=== PATIENT | male | born 1980 | race Caucasian/White ===

== ENCOUNTER 2021-03-27 07:09 | Inpatient (IN) ==
--- NOTE | 2021-03-27 07:18 | Emergency Department Note ---
Impression & Plan Lumbar back pain, Sciatica, Herniation of intervertebral disc of lumbar region ED Provider Note Provider: Lui Martin MD DATE OF SERVICE: 03/24/2021 CHIEF COMPLAINT: Back pain HISTORY OF PRESENT ILLNESS: Patient is a 40-year-old gentleman history of degenerative back disease follows with Dr. Chavez with the plan for back surgery in several weeks presenting here today reporting back pain issues for more than 3 months. Has been told by Dr. Chavez if things worsen to come to the ER this presents today. Patient reports some radiation of the pain down the left leg to the left calf. Denies any new numbness or loss of bladder or bowel function. Describes it as a 8 out of 10 pain. Patient reports that the pain is worsened some and has kept him up all night. Patient states his home medications including tramadol not did not help with the pain. Reports he has some chronic numbness in the left lateral leg and knee area but this is unchanged. No trauma reported newly. Was scheduled for back surgery next week but this is currently on hold given the current state of the pandemic & hospital census. Patient reports MRI this past weekend. REVIEW OF SYSTEMS: A total of 10 review of systems was obtained and negative except as stated above in the HPI. PAST MEDICAL HISTORY: As noted above MEDICATIONS: Reviewed home medications with the patient SOCIAL HISTORY: Former smoker, works in maintenance PHYSICAL EXAM: GENERAL: alert and oriented seated in no acute distress on stretcher fatigued appearing Head: normocephalic and atraumatic EYES: No injection, discharge or icterus. NECK: Trachea midline. LUNGS: Airway patent. No retractions. Breath sounds clear HEART: Regular rate and rhythm. No chest wall tenderness ABDOMEN: Soft and non-tender, without guarding or rebound. No hepatosplenomegaly or masses BACK: No midline tenderness/step-off no SI joint tenderness. No bilateral flank tenderness. SKIN: Acyanotic, warm, dry, without rashes EXTREMITIES: Without swelling, tenderness or deformity NEUROLOGICAL: No focal deficits. No aphasia. No facial droop or slurred speech. Normal strength and tone in the extremities. Sensation to gross touch normal. Ambulatory. PDMP was checked without noted issue. Patient's laboratory studies and imaging reviewed. Differential includes Musculoskeletal, disc herniation, fracture, metastatic disease, cord compression, discitis, sciatica, cauda equina, infection, aortic disease, renal colic, gastrointestinal, as well as other pathologies. IMPRESSION/MEDICAL DECISION MAKING: Patient with history of degenerative back pain over the past year has followed with Dr. Chavez. MRI this past [facility] at [facility]. Patient denies any new trauma. No new neurological changes or bladder or bowel issues. Patient does report both with a stable left knee numbness. He states the pain is worsened some and he was unable to sleep last night thus presents here. Has been using home medications including tramadol. Has received steroids stopped in the past. Given a dose of steroids and morphine here to help with pain. Benign abdomen otherwise. Doubt this represents acute cauda equina or infection. Doubt acute intra-abdominal pathology. Basic labs completed. Case management assisted obtaining outside records of the lumbar MRI which has not been read yet by the radiologist. Blood work here is reassuring. Patient's pain transiently abated with the morphine the patient still without significant comfort. Reached out to Dr. Chavez and was later was able to get an MRI read for the patient with worsening spinal stenosis/lumbar disc herniation L4-L5. Dr. Chavez will admit for further pain control and possible intervention given his complaints and poorly controlled symptoms of pain. DIAGNOSIS: Back pain, herniated lumbar disc, sciatica DISPOSITION: Dr. Chavez will admit Patient was agreeable with this plan Past Med/Surg History Medical History Degenerative disc disease Elevated blood pressure, situational per pt, elevated but not requiring medication per PCP Elevated cholesterol not on medication Right bundle branch block Surgical History History of myringotomy X 5, current set History of tonsillectomy and adenoidectomy Hx of vasectomy [place] teeth removed Family History Father Family history of diabetes mellitus Grandmother (Maternal) Family history of diabetes mellitus Grandfather (Maternal) Family history of diabetes mellitus Other No family history of adverse response to anesthesia Social History Smoking Status: Former smoker Smoking End Date: 01/23/21; Second Hand Exposure: No; Hx Alcohol Use: Yes Alcohol type: beer and hard liquor Hx Substance Use: No Preferred Language: German Communication Ability: Effective Dramatic Reader Required: No Beliefs That Will Affect Care: None Current Living Situation: Spouse Other Information That Helps Us Care for You: No Feels Safe at Home: Yes Safety Concerns: Feels Safe At This Time Assistive Devices: None Allergies Allergies Allergy/AdvReac Type Severity Reaction Status Date / Time No Known Allergies Allergy Verified 03/19/21 09:31 Home Meds Home Medications Medication Instructions Recorded Confirmed cyclobenzaprine 10 mg tablet 10 mg PO TID PRN 03/19/21 03/27/21 gabapentin 600 mg tablet 600 mg PO TID 03/19/21 03/27/21 naproxen sodium 220 mg capsule 220 mg PO BID PRN 03/19/21 03/27/21 (Aleve) tramadol 50 mg tablet 50 mg PO TID PRN 03/19/21 03/27/21 celecoxib 200 mg capsule 200 mg PO DAILY 03/27/21 03/27/21 Results & Data (ED) Vital Signs Vital Signs - 24 hr 03/27/21 07:13 03/27/21 07:58 03/27/21 08:57 Temperature 36.6 C Temperature Source Skin Pulse Rate 70 69 Pulse Rate [Right Finger] 64 Pulse Strength [Right Finger] Normal Respiratory Rate 18 17 16 Respiratory Effort / Characteristics Non-Labored Spontaneous Respiratory Depth Normal Respiratory Pattern Regular Blood Pressure 164/99 H Blood Pressure [Right Arm] 162/89 H Blood Pressure Mean 120 Blood Pressure Mean [Right Arm] 113 Blood Pressure Position [Right Arm] Sitting Pulse Oximetry 97 97 96 Oxygen Delivery Method Room Air Room Air Room Air Sepsis Recent Fever Within 48 Hours No Sepsis New/Unexplained Change in Mental Status No Sepsis Action Taken by Nursing No Action Required Laboratory Data Result diagrams: 03/27/21 08:05 03/27/21 08:05 Lab Results 03/27/21 03/27/21 03/27/21 Range/Units 08:05 08:05 10:00 WBC 8.64 (4.8-10.8) K/uL RBC 4.98 (4.7-6.1) M/uL Hgb 15.2 (14.0-18.0) g/dL Hct 45.7 (42-52) % MCV 91.8 (80-100) fL MCH 30.5 (25-34) pg MCHC 33.3 (32-36) g/dL RDW Std Deviation 42.8 (36.4-46.3) fL RDW Coeff of Ying 12.8 (11.5-14.5) % Plt Count 264 (130-400) K/uL MPV 10.8 H (7.4-10.4) fL Immature Gran % (Auto) 0.1 % Neut % (Auto) 59.3 % Lymph % (Auto) 24.9 % Brooks % (Auto) 10.2 % Eos % (Auto) 5.3 % Baso % (Auto) 0.2 % Neut # (Auto) 5.12 (1.4-6.5) K/uL Lymph # (Auto) 2.15 (1.2-3.4) K/uL Brooks # (Auto) 0.88 H (0.11-0.59) K/uL Eos # (Auto) 0.46 (0-0.5) K/uL Baso # (Auto) 0.02 (0-0.2) K/uL Immature Gran # (Auto) 0.01 (0.00-0.02) K/uL Sodium 139 (136-145) mmol/L Potassium 4.3 (3.5-5.1) mmol/L Chloride 107 (98-107) mmol/L Carbon Dioxide 26 (21-32) mmol/L Anion Gap 6.0 (3-11) BUN 15 (7-18) mg/dl Creatinine 0.86 (0.6-1.4) mg/dl Est Cr Clr Drug Dosing 162.7 ml/min Est GFR ( Amer) 125.7 ml/min Est GFR (Non-Af Amer) 108.5 ml/min BUN/Creatinine Ratio 17.6 (10-20) Glucose 114 H (70-99) mg/dl Calcium 9.4 (8.5-10.1) mg/dl Total Bilirubin 0.5 (0.2-1) mg/dl AST 33 (15-37) U/L ALT 77 (12-78) Alkaline Phosphatase 66 (45-117) U/L Total Protein 7.6 (6.4-8.2) gm/dl Albumin 3.7 (3.4-5.0) gm/dl Globulin 3.9 (2.5-4.0) gm/dl Albumin/Globulin Ratio 0.9 (0.9-2) Lipase 142 (73-393) U/L SARS-CoV-2, RNA, NAAT NEGATIVE (NEGATIVE) Administered Medications Gabapentin (Gabapentin 600 Mg Tab) 600 mg PO TID ZENAIDA Stop: 04/26/21 13:59 Last Admin: 03/27/21 13:08 Dose: 600 mg Documented by: [id number] Lactated Ringer's (Lr) 1,000 mls @ 75 mls/hr IV .[id number] ZENAIDA Stop: 04/26/21 11:33 Last Admin: 03/27/21 11:43 Dose: 75 mls/hr Documented by: [id number] Oxycodone HCl (Oxycodone Hcl Ir 5 Mg Tab (Immediate Release)) 5 - 10 mg PO Q4H PRN PRN Reason: mod to severe pain Stop: 04/10/21 11:33 Last Admin: 03/27/21 12:49 Dose: 5 mg Documented by: [id number] Discontinued Medications Dexamethasone Sodium Phosphate (DexamethasonePf 10 Mg/Ml Vial) 10 mg IV NOW ONE Stop: 03/27/21 07:37 Last Admin: 03/27/21 07:56 Dose: 10 mg Documented by: [id number] Morphine Sulfate (Morphine Sulfate 4 Mg/Ml 1 Ml Carp\Vial) 4 mg IV NOW STA Stop: 03/27/21 07:37 Last Admin: 03/27/21 07:57 Dose: 4 mg Documented by: [id number] Discharge Plan Visit Data Chief Complaint: Back Injury/Pain Stated Complaint: SEVERE BACK PAIN ED Provider: Lui Martin Discharge Problem: Lumbar back pain, Sciatica, Herniation of intervertebral disc of lumbar region Patient Disposition: Admitted As Inpatient Discharge Instructions Interventions: ED Discharge Assessment Last Done: 03/27/21 10:48 Discharge Problem: Sciatica Qualifiers: Laterality: left Qualified Code(s): M54.32 - Sciatica, left side
[2021-03-27] MEDS ORDERED: MoRPHine SULFATE 4 MG/ML 1 ML CARP\\VIAL IV STA (07:36)
[2021-03-27] MEDS ORDERED: dexAMETHasone**PF** 10 MG/ML VIAL IV ONE (07:36)
[2021-03-27 08:14] LABS: Basophils # (auto) 0.02 K/uL (0-0.2); Basophils % (auto) 0.2 %; Eosinophils # (auto) 0.46 K/uL (0-0.5); Eosinophils % (auto) 5.3 %; Hematocrit (blood only) 45.7 % (42-52); Hemoglobin 15.2 g/dL (14.0-18.0); Immature Granulocytes # (auto) 0.01 K/uL (0.00-0.02); Immature Granulocytes % (auto) 0.1 %; Lymphocytes # (auto) 2.15 K/uL (1.2-3.4); Lymphocytes % (auto) 24.9 %; Mean Corpuscular Hemoglobin 30.5 pg (25-34); Mean Corpuscular Hgb Conc 33.3 g/dL (32-36); Mean Corpuscular Volume 91.8 fL (80-100); Mean Platelet Volume 10.8 fL (7.4-10.4); Monocytes # (auto) 0.88 K/uL (0.11-0.59); Monocytes % (auto) 10.2 %; Neutrophils # (auto) 5.12 K/uL (1.4-6.5); Neutrophils % (auto) 59.3 %; Platelet Count 264 K/uL (130-400); RDW Coefficient of Variation 12.8 % (11.5-14.5); RDW Standard Deviation 42.8 fL (36.4-46.3); Red Blood Count 4.98 M/uL (4.7-6.1); White Blood Count 8.64 K/uL (4.8-10.8)
[2021-03-27 08:36] LABS: Albumin Level 3.7 gm/dl (3.4-5.0); BUN Creatinine Ratio 17.6 (10-20); Calcium 9.4 mg/dl (8.5-10.1); Creatinine Clr Calc Pharmacy 162.7 ml/min; Est GFR (African American) 125.7 ml/min; Est GFR (Non-African American) 108.5 ml/min; Potassium 4.3 mmol/L (3.5-5.1)
[2021-03-27 08:39] LABS: Albumin Globulin Ratio 0.9 (0.9-2); Bilirubin,Total 0.5 mg/dl (0.2-1); Globulin 3.9 gm/dl (2.5-4.0); Total Protein 7.6 gm/dl (6.4-8.2)
[2021-03-27] MEDS ORDERED: hydrOXYzine HCl 25 MG TAB PO PRN (11:34)
[2021-03-27] MEDS ORDERED: METOCLOPRAMIDE HCL INJ 5 MG/ML 2 ML VIAL IV PRN (11:34)
[2021-03-27] MEDS ORDERED: MAGNESIUM HYDROXIDE SUSP 30 ML UDC PO PRN (11:34)
[2021-03-27] MEDS ORDERED: diphenhydrAMINE Capsule 25 MG CAP PO PRN (11:34)
[2021-03-27] MEDS ORDERED: ACETAMINOPHEN 500 MG TAB PO PRN (11:34)
[2021-03-27] MEDS ORDERED: HYDROmorphone INJ 0.5 MG/0.5 ML SYR IV PRN (11:34)
[2021-03-27] MEDS ORDERED: ONDANSETRON 4 MG OD TAB PO PRN (11:34)
[2021-03-27] MEDS ORDERED: ALUMINUM/MAGNESIUM SUSP 30 ML UDC PO PRN (11:34)
[2021-03-27] MEDS ORDERED: ONDANSETRON INJ 2 MG/ML 2 ML VIAL IV PRN (11:34)
[2021-03-27] MEDS ORDERED: PROMETHAZINE HCL 12.5 MG in SODIUM CHLORIDE 0.9% 50 ML IV PRN (11:34)
[2021-03-27] MEDS ORDERED: NALOXONE HCL 0.4 MG/1 ML VIAL/CARP IV PRN (11:34)
[2021-03-27] MEDS ORDERED: ACETAMINOPHEN 1,000 MG/100 ML VIAL IV PRN (11:34)
[2021-03-27] MEDS ORDERED: HYDROmorphone INJ 1 MG/ML SYRINGE IV PRN (11:34)
[2021-03-27] MEDS ORDERED: LORazepam 0.5 MG/1 ML VIAL IV PRN (11:34)
[2021-03-27] MEDS ORDERED: LORazepam 0.5 MG TAB PO PRN (11:34)
[2021-03-27] MEDS: LACTATED RINGER'S 1,000 ML IV SCH ×2 (11:43→23:27)
[2021-03-27] MEDS: oxyCODONE HCL IR 5 MG TAB (IMMEDIATE RELEASE) PO PRN ×2 (12:49→17:48)
[2021-03-27] MEDS ORDERED: ceFAZolin 3000MG/72.5 ML BAG IV ONE (13:00)
[2021-03-27] MEDS: GABAPENTIN 600 MG TAB PO SCH ×2 (13:08→20:27)
--- NOTE | 2021-03-27 13:25 | Anesthesiology Consultation ---
Date of Service March 27, 2021 Assessment & Plan (1) Encounter for pre-operative examination: Chart Review Chart Review: Acceptable Risk for Surgery and Patient seen in Pre Admission Testing Consults Requested none History Surgery Operation Date: 03/28/21 07:00 Proposed Procedures p L4-L5 Decompression and Fusion - Scooter Chavez DO Height/Weight Height: 6 ft 1 in Weight: 141.067 kg Allergies Allergy/AdvReac Type Severity Reaction Status Date / Time No Known Allergies Allergy Verified 03/19/21 09:31 Medications Home Medications Medication Instructions Recorded Confirmed Last Taken cyclobenzaprine 10 mg tablet 10 mg PO TID PRN 03/19/21 03/27/21 03/27/21 gabapentin 600 mg tablet 600 mg PO TID 03/19/21 03/27/21 03/27/21 naproxen sodium 220 mg capsule 220 mg PO BID PRN 03/19/21 03/27/21 Unknown (Aleve) tramadol 50 mg tablet 50 mg PO TID PRN 03/19/21 03/27/21 03/27/21 celecoxib 200 mg capsule 200 mg PO DAILY 03/27/21 03/27/21 03/27/21 Active Medications Generic Name Dose Route Start Last Admin Trade Name Freq PRN Reason Stop Dose Admin Gabapentin 600 mg 03/27/21 14:00 03/27/21 13:08 Gabapentin 600 Mg Tab PO 04/26/21 13:59 600 mg TID ZENAIDA Administration Lactated Ringer's 1,000 mls @ 75 mls/hr 03/27/21 11:34 03/27/21 11:43 Lr IV 04/26/21 11:33 75 mls/hr .[id number] ZENAIDA Administration Oxycodone HCl 5 - 10 mg 03/27/21 11:34 03/27/21 12:49 Oxycodone Hcl Ir 5 Mg Tab (Immediate Release) PO 04/10/21 11:33 5 mg Q4H PRN Administration mod to severe pain Past Medical History Medical History Degenerative disc disease Elevated blood pressure, situational per pt, elevated but not requiring medication per PCP Elevated cholesterol not on medication Right bundle branch block Past Family History Family History Father Family history of diabetes mellitus Grandmother (Maternal) Family history of diabetes mellitus Grandfather (Maternal) Family history of diabetes mellitus Other No family history of adverse response to anesthesia Past Surgical History Surgical History History of myringotomy X 5, current set History of tonsillectomy and adenoidectomy Hx of vasectomy [place] teeth removed Social History Smoking Status: Former smoker tobacco type: cigarettes Smoking End Date: 01/23/21 Hx Alcohol Use: Yes Alcohol type: beer and hard liquor alcohol intake frequency: holidays/special occasions only Hx Substance Use: No substance use type: does not use Physical Exam Vital Signs Last Vital Signs Temp 36.8 C 03/27/21 11:23 Pulse 62 03/27/21 11:23 Resp 18 03/27/21 11:23 BP 148/84 H 03/27/21 11:23 Pulse Ox 97 03/27/21 11:23 Testing Laboratory Results 03/27/21 08:05 03/27/21 08:05 Electrocardiogram Date: 03/22/21 DICTATED BY:Smooth Marvin MD Test Reason : Blood Pressure : / mmHG Vent. Rate : 058 BPM Atrial Rate : 058 BPM P-R Int : 144 ms QRS Dur : 168 ms QT Int : 462 ms P-R-T Axes : 018 046 018 degrees QTc Int : 453 ms Sinus bradycardia Right bundle branch block Abnormal ECG No previous ECGs available Confirmed by Smooth Marvin ([id number]) on 03/23/2021 12:08:46 PM Referred By: Scooter Chavez Confirmed By:Smooth Marvin Signed By: Chest X-Ray Date: 03/22/21 XR chest Pre-admission PA/Lat CLINICAL HISTORY: pat. Evaluate cardiopulmonary status COMPARISON STUDY: No previous studies for comparison. TECHNIQUE: 2 views of the chest FINDINGS: Frontal and lateral radiographs of the chest demonstrate the cardiomediastinal silhouette to be within normal limits. The lungs are clear of alveolar opacities. There is no evidence for effusion bilaterally. There is no evidence for vascular congestion. There is no acute osseous pathology. IMPRESSION: No acute cardiopulmonary disease. ACT 112: Negative or not required by law. Electronically signed by: Shaji Molina M.D. 03/22/2021 11:55 AM Dictated:03/22/21 1154 Transcribed: 03/22/21 1154
--- NOTE | 2021-03-27 14:43 | Internal Medicine Consult Note ---
Date of Consultation March 27, 2021 Assessment & Plan (1) Lumbar back pain: Lumbar Spinal stenosis with radiculopathy Plan for L4-L5 decompression fusion surgery by Dr. Chavez. Pain control NPO after midnight Monitor for post OP anemia Bowel regimen to prevent constipation Activity & DVT Px as per Primary team On gentle IV fluids PT/OT when appropriate Seasonal Allergies on Flonase as needed DVT Px: SCDs for now Code Status Full Code Thank you for this consultation. We will follow the patient with you during their hospital stay. You can reach a member of the [facility] Hospitalist Team with any questions. History of Present Illness Reason for Consultation: Medical Management Requesting Physician: Attending Physician: Scooter Chavez, DO History of Present Illness Patient is a 40-year-old male with history of chronic low back pain, allergies and no other significant medical history presents with history of worsening lower back pain inability to perform his daily activities. Patient states trying different therapies including injections, physical therapy, steroids, chiropractor evaluation but with no relief of his symptoms. Patient states lower back pain is sharp to dull, 5/10, radiates to left lower extremity and associated with some numbness. Back pain worsens with movement and is controlled with pain medication. Denies any leg weakness, chest pain, shortness breath, dizziness, nausea, abdominal pain, fever, chills, loss of bowel or bladder control. Patient is planned for L4-L5 decompression fusion surgery by Dr. Chavez. Allergies Allergy/AdvReac Type Severity Reaction Status Date / Time No Known Allergies Allergy Verified 03/19/21 09:31 Home Medications Medication Instructions Recorded Confirmed Type cyclobenzaprine 10 mg tablet 10 mg PO TID PRN 03/19/21 03/27/21 History gabapentin 600 mg tablet 600 mg PO TID 03/19/21 03/27/21 History naproxen sodium 220 mg capsule 220 mg PO BID PRN 03/19/21 03/27/21 History (Aleve) tramadol 50 mg tablet 50 mg PO TID PRN 03/19/21 03/27/21 History celecoxib 200 mg capsule 200 mg PO DAILY 03/27/21 03/27/21 History Patient History Medical History Degenerative disc disease Elevated blood pressure, situational per pt, elevated but not requiring medication per PCP Elevated cholesterol not on medication Right bundle branch block Surgical History History of myringotomy X 5, current set History of tonsillectomy and adenoidectomy Hx of vasectomy [place] teeth removed Family History Father Family history of diabetes mellitus Grandmother (Maternal) Family history of diabetes mellitus Grandfather (Maternal) Family history of diabetes mellitus Other No family history of adverse response to anesthesia Social History Smoking Status: Former smoker Smoking End Date: 01/23/21; Second Hand Exposure: No; Hx Alcohol Use: Yes Alcohol type: beer and hard liquor Hx Substance Use: No Preferred Language: Croatian Communication Ability: Effective Primary Care Sales Representative Required: No Beliefs That Will Affect Care: None Current Living Situation: Spouse Other Information That Helps Us Care for You: No Feels Safe at Home: Yes Safety Concerns: Feels Safe At This Time Assistive Devices: None Review of Systems Review of Systems: All systems reviewed & are unremarkable except as noted in Subjective Physical Exam Physical Exam: Physical Exam: Vitals signs as noted above General Appearance:Morbidly Obese, no apparent distress Head: normocephalic, Atraumatic Eyes: normal inspection, EOMI Neck: supple, Trachea midline Respiratory/Chest: Normal breath sounds, CTA Cardiovascular: S1, S2, No murmur Abdomen/GI:Soft, Non tender, Bowel sounds present Back: Lumbar tenderness Extremities/Musculoskeletal:normal inspection, no edema Neurologic/Psych:AAOX3, grossly no focal neurological deficits Skin: normal color, warm Results & Data ([facility]) Vital Signs (Past 12 Hours) Vital Signs Temp Pulse Pulse Resp BP BP Pulse Ox 03/27/21 11:23 36.8 C 62 18 148/84 H 97 03/27/21 08:57 64 16 162/89 H 96 03/27/21 07:58 69 17 97 03/27/21 07:13 36.6 C 70 18 164/99 H 97 Laboratory Results Short CBC 03/27/21 Range/Units 08:05 WBC 8.64 (4.8-10.8) K/uL Hgb 15.2 (14.0-18.0) g/dL Hct 45.7 (42-52) % Plt Count 264 (130-400) K/uL BMP 03/27/21 08:05 Sodium 139 Potassium 4.3 Chloride 107 Carbon Dioxide 26 BUN 15 Creatinine 0.86 Glucose 114 H Calcium 9.4 Liver Function 03/27/21 Range/Units 08:05 Total Bilirubin 0.5 (0.2-1) mg/dl AST 33 (15-37) U/L ALT 77 (12-78) Alkaline Phosphatase 66 (45-117) U/L Albumin 3.7 (3.4-5.0) gm/dl Medications Administered Home Medications Medication Instructions Recorded Confirmed cyclobenzaprine 10 mg tablet 10 mg PO TID PRN 03/19/21 03/27/21 gabapentin 600 mg tablet 600 mg PO TID 03/19/21 03/27/21 naproxen sodium 220 mg capsule 220 mg PO BID PRN 03/19/21 03/27/21 (Aleve) tramadol 50 mg tablet 50 mg PO TID PRN 03/19/21 03/27/21 celecoxib 200 mg capsule 200 mg PO DAILY 03/27/21 03/27/21
--- NOTE | 2021-03-27 15:51 | History & Physical Report ---
Date of Service March 27, 2021 Assessment & Plan (1) Herniation of intervertebral disc of lumbar region: Plan: Assessment lumbar spinal stenosis with disc herniation L4-L5. Plan at this time the patient has an updated MRI performed at [facility] dated 03/23/2020 one of the lumbar spine. It demonstrates worsening of his disc herniation at L4-L5 on the left with significant encroachment of the traversing nerve roots. There is marked facet hypertrophy and congenital spinal stenosis. In light of his presentation neuro deficit we are recommending urgent lumbar decompression fusion L4-5. He will require aggressive bilateral medial facetectomies to adequately and safely decompress the canal creating iatrogenic instability and thus requiring fusion. Risk benefits pros cons alternatives were outlined in detail. Admission and Anticipated Discharge Date Admission Date: March 27, 2021 History of Present Illness Chief Complaint: Severe back and left leg pain with weakness Primary Care Provider: Peterson Gaxiola DO This is a 40-year-old male well-known to us that is been managed for back and leg symptoms for several months. He notes a marked decline in status over the past several weeks. With pain severe down the left buttock posterior lateral thigh into the lower leg. This is markedly exacerbated with standing and walking. Right lower extremities asymptomatic. He is unable to provide any position that provides relief. Oral medications provided no help. Is undergone extensive course of physical therapy and injections without any relief. Allergies Allergy/AdvReac Type Severity Reaction Status Date / Time No Known Allergies Allergy Verified 03/19/21 09:31 Home Medications Medication Instructions Recorded Confirmed Type cyclobenzaprine 10 mg tablet 10 mg PO TID PRN 03/19/21 03/27/21 History gabapentin 600 mg tablet 600 mg PO TID 03/19/21 03/27/21 History naproxen sodium 220 mg capsule 220 mg PO BID PRN 03/19/21 03/27/21 History (Aleve) tramadol 50 mg tablet 50 mg PO TID PRN 03/19/21 03/27/21 History celecoxib 200 mg capsule 200 mg PO DAILY 03/27/21 03/27/21 History Past Med/Surg History Medical History Degenerative disc disease Elevated blood pressure, situational per pt, elevated but not requiring medication per PCP Elevated cholesterol not on medication Right bundle branch block Surgical History History of myringotomy X 5, current set History of tonsillectomy and adenoidectomy Hx of vasectomy [place] teeth removed Family History Father Family history of diabetes mellitus Grandmother (Maternal) Family history of diabetes mellitus Grandfather (Maternal) Family history of diabetes mellitus Other No family history of adverse response to anesthesia Social History Smoking Status: Former smoker Smoking End Date: 01/23/21; Second Hand Exposure: No; Hx Alcohol Use: Yes Alcohol type: beer and hard liquor Hx Substance Use: No Preferred Language: Bengali Communication Ability: Effective Appointment Scheduler Required: No Beliefs That Will Affect Care: None Current Living Situation: Spouse Other Information That Helps Us Care for You: No Feels Safe at Home: Yes Safety Concerns: Feels Safe At This Time Assistive Devices: None Physical Exam Physical Exam: On exam he is able to stand. He can stand on his toes but cannot heel walk on the left leg secondary to foot drop. Bench exam reveals 4- /5 left dorsiflexion compared to 5 5 on the right. His quadriceps are 5 5 bilaterally. He has severe tension signs with straight leg raising on the left negative on the right. Deep tendon reflexes diminished. Results & Data ([facility]) Vital Signs (Past 12 Hours) Vital Signs Temp Pulse Pulse Resp BP BP Pulse Ox 03/27/21 11:23 36.8 C 62 18 148/84 H 97 03/27/21 08:57 64 16 162/89 H 96 03/27/21 07:58 69 17 97 03/27/21 07:13 36.6 C 70 18 164/99 H 97 Code Status & VTE Plan VTE Prophylaxis Plan VTE Prophylaxis will be ordered: Yes
[2021-03-28] MEDS ORDERED: ceFAZolin 2000MG 2,000 MG/15 ML SYR IV SCH (06:00)
[2021-03-28] MEDS ORDERED: ceFAZolin 3000MG/72.5 ML BAG IV ONE (06:00)
[2021-03-28 06:26] LABS: Hematocrit (blood only) 41.1 % (42-52); Hemoglobin 13.8 g/dL (14.0-18.0); Mean Corpuscular Hemoglobin 30.8 pg (25-34); Mean Corpuscular Hgb Conc 33.6 g/dL (32-36); Mean Corpuscular Volume 91.7 fL (80-100); Mean Platelet Volume 11.1 fL (7.4-10.4); Platelet Count 251 K/uL (130-400); RDW Coefficient of Variation 12.7 % (11.5-14.5); RDW Standard Deviation 42.7 fL (36.4-46.3); Red Blood Count 4.48 M/uL (4.7-6.1); White Blood Count 13.61 K/uL (4.8-10.8)
[2021-03-28] MEDS ORDERED: EPINEPHrine INJ 1 MG/ML AMP ONE (06:53)
[2021-03-28] MEDS ORDERED: BUPIVACAINE 0.5 % 5 MG/1 ML MPF 30ML VIAL ONE (06:53)
[2021-03-28 07:20] LABS: BUN Creatinine Ratio 15.8 (10-20); Calcium 8.9 mg/dl (8.5-10.1); Creatinine Clr Calc Pharmacy 161.1 ml/min; Est GFR (African American) 123.4 ml/min; Est GFR (Non-African American) 106.5 ml/min; Potassium 3.7 mmol/L (3.5-5.1)
--- NOTE | 2021-03-28 07:42 | History & Physical Bridge Note ---
Date of Service March 28, 2021 History & Physical Bridge Note I have examined the patient, reviewed the History & Physical and in the interval since the performance of the History & Physical I have noted the following changes of clinical significance: no changes noted Lumbar decompression fusion L4-L5
[2021-03-28] MEDS ORDERED: NEOSTIGMINE METHYLSULFATE 1 MG/ML 10ML VIAL ONE (07:51)
[2021-03-28] MEDS ORDERED: DEXAMETHASONE SOD INJ 4 MG/ML VIAL ONE (07:51)
[2021-03-28] MEDS ORDERED: GLYCOPYRROLATE 0.2 MG/ML VIAL ONE (07:51)
[2021-03-28] MEDS ORDERED: LIDOCAINE 2% 2 ML VIAL/AMP(20MG/ML) INFIL ONE (07:51)
[2021-03-28] MEDS ORDERED: PROPOFOL IV EMULSION 10 MG/ML 20 ML VIAL IV ONE (07:51)
[2021-03-28] MEDS ORDERED: fentaNYL citrate 100 MCG/2 ML VIAL ONE (07:51)
[2021-03-28] MEDS ORDERED: MIDAZOLAM HCL 1 MG/ML 2ML VIAL ONE (07:51)
[2021-03-28] MEDS ORDERED: ONDANSETRON INJ 2 MG/ML 2 ML VIAL ONE (07:51)
[2021-03-28] MEDS ORDERED: HYDROmorphone INJ 2 MG/ML SYR/VIAL ONE (07:52)
[2021-03-28] MEDS ORDERED: ONDANSETRON INJ 2 MG/ML 2 ML VIAL IV PRN ×2 (07:57→12:03)
[2021-03-28] MEDS ORDERED: ePHEDrine sulfate 50 MG/ML AMP IV PRN (07:57)
[2021-03-28] MEDS ORDERED: ATROPINE SULFATE 0.1 MG/ML 10ML SYR IV PRN (07:57)
[2021-03-28] MEDS ORDERED: ROCURONIUM BROMIDE 10 MG/ML 5 ML VIAL IV ONE ×9 (09:26→09:28)
[2021-03-28] MEDS ORDERED: SUCCINYLCHOLINE CHLORIDE 20 MG/ML 10 ML VIAL IV ONE (09:29)
[2021-03-28] MEDS ORDERED: FLOSEAL HEMOSTATIC MATRIX 10ML TOP ONE (09:30)
[2021-03-28] MEDS ORDERED: SUGAMMADEX SODIUM 200 MG/2 ML VIAL IV ONE (10:00)
--- NOTE | 2021-03-28 10:11 | Operative Report ---
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 #2 posterior spinal fusion L4-L5. #3 placement posterior instrumentation L4-L5. #4 interbody fusion L4-L5. #5 placement of titanium 12 x 26 mm cage at L4-L5. #6 placement locally harvested morselized autograft in the posterior gutters. #7 placement of I factor combined with V toss in the interbody space and posterior lateral gutters. Surgeon Scooter Chavez, DO Electrical Cad Technician Zeinab Gómez Estimated Blood Loss 100 Findings See Below The patient is 6 foot 1 inches tall weighing over 141 kg with a BMI of 41. The patient's body habitus did continue to significant technical difficulty requiring her deepest retractors longus instruments in order to perform his procedure. This at least 50% increased operative time. Specimens None Indications This is a 40-year-old male who presents with marked decline in status with worsening neurologic deficit affecting left lower extremity evidence of a massive disc herniation and is here for urgent decompression fusion. Description of Procedure Patient met with identified informed consent obtained. Patient was then taken to the operative suite underwent intubation placed in the prone position the Tyson table top Haresh frame. All bony prominences well-padded eyes inspected to ensure no external pressure placed upon them. This point the lumbar spine was prepped and draped in normal sterile fashion. Sharp dissection with the assistance of Bovie cautery was performed down to and exposing the lamina and transverse processes of L4-L5. From caudal cephalad fashion complete laminectomy L4 partial laminectomy of L3 was performed including bilateral medial facetectomy and foraminotomies addressing severe spinal stenosis. Massive free fragment of disc material was also noted on the left under the traversing nerve root. This was removed in its entirety to assist in decompr ession. Pedicle screws then placed in L4-L5 bilaterally with assistance of fluoroscopy and appropriate sized gabe placed. By way the transforaminal portion left pleat discectomy was performed endplates curetted to subcortically bone and a 12 x 26 mm 15 degree titanium cage filled with I factor tapped in position. The rods were then compressed locked in final position bilaterally. The transverse processes of L4 and L5 burred to subcortical bleeding bone. Locally harvested morselized autograft combined with I factor and Vitoss was then placed in the posterior gutters. 15 round JOVANNA drain inserted. Incision was then closed with 1 Vicryl to fascia 2-0 Vicryl subcutaneously and 4 Monocryl for final skin closure. Steri-Strip sterile dressings placed. Patient will continue PACU stable condition. Please note spinal cord monitoring was utilized at the procedure no changes noted. Lastly Zeinab Gómez was present at the entire procedure and while the patient positioning complex portions of the surgery and vascular closure. I attest to the content of the Intraoperative Record and any orders documented therein. Any exceptions are noted below.
[2021-03-28] MEDS: fentaNYL citrate 100 MCG/2 ML VIAL IV PRN ×2 (10:33→10:42)
[2021-03-28] MEDS: HYDROmorphone INJ 2 MG/ML SYR/VIAL IV PRN ×2 (10:52→11:11)
--- NOTE | 2021-03-28 11:04 | Fluoroscopy Report ---
FL lumbar spine 2-3V HISTORY: 40 years-old Male L4-L5 DECOMP/FUSION COMPARISON: Lumbar spine MRI 03/23/2021 TECHNIQUE: 2 spot fluoroscopic images of the lumbar spine were obtained utilizing 19.6 seconds fluoro scopy time FINDINGS: Laminectomy with discectomy, posterior interbody gabe and screw fusion at L4-L5. The hardware appears intact. No unexpected opaque foreign body identified on these images. IMPRESSION: Fluoroscopic assistance as above. ACT 112: Negative or not required by law. The above report was generated using voice recognition software. It may contain grammatical, syntax o r spelling errors. Electronically signed by: Graeme Corcoran M.D. 03/28/2021 11:03 AM
[2021-03-28] MEDS ORDERED: DO NOT ADMINISTER FLU VACCINE PRN (12:03)
[2021-03-28] MEDS ORDERED: DO NOT ADMINISTER PNEUMOCOCCAL VACCINE PRN (12:03)
[2021-03-28] MEDS ORDERED: ACETAMINOPHEN 500 MG TAB PO PRN (12:03)
[2021-03-28] MEDS ORDERED: traMADol HCL 50 MG TABLET PO PRN (12:03)
[2021-03-28] MEDS ORDERED: HYDROmorphone INJ 1 MG/ML SYRINGE IV PRN (12:03)
[2021-03-28] MEDS ORDERED: hydrOXYzine HCl 25 MG TAB PO PRN (12:03)
[2021-03-28] MEDS ORDERED: bisacodyL 10 MG SUPP PR PRN (12:03)
[2021-03-28] MEDS ORDERED: oxyCODONE HCL IR 5 MG TAB (IMMEDIATE RELEASE) PO PRN (12:03)
[2021-03-28] MEDS ORDERED: ONDANSETRON 4 MG OD TAB PO PRN (12:03)
[2021-03-28] MEDS ORDERED: diphenhydrAMINE Capsule 25 MG CAP PO PRN (12:03)
[2021-03-28] MEDS ORDERED: NALOXONE HCL 0.4 MG/1 ML VIAL/CARP IV PRN (12:03)
[2021-03-28] MEDS ORDERED: METOCLOPRAMIDE HCL INJ 5 MG/ML 2 ML VIAL IV PRN (12:03)
[2021-03-28] MEDS ORDERED: MAGNESIUM HYDROXIDE SUSP 30 ML UDC PO PRN (12:03)
[2021-03-28] MEDS ORDERED: FAMOTIDINE 20 MG TAB PO PRN (12:03)
[2021-03-28] MEDS ORDERED: LORazepam 0.5 MG/1 ML VIAL IV PRN (12:03)
[2021-03-28] MEDS ORDERED: LACTATED RINGER'S 1,000 ML IV SCH (12:03)
[2021-03-28] MEDS ORDERED: LORazepam 0.5 MG TAB PO PRN (12:03)
[2021-03-28] MEDS ORDERED: HYDROmorphone INJ 0.5 MG/0.5 ML SYR IV PRN (12:03)
[2021-03-28] MEDS ORDERED: PROMETHAZINE HCL 12.5 MG in SODIUM CHLORIDE 0.9% 50 ML IV PRN (12:03)
[2021-03-28] MEDS ORDERED: ALUMINUM/MAGNESIUM SUSP 30 ML UDC PO PRN (12:03)
[2021-03-28] MEDS ORDERED: ACETAMINOPHEN 1,000 MG/100 ML VIAL IV PRN (12:03)
[2021-03-28] MEDS ORDERED: SOD PHOSPHATE/SOD BIPHOSPHATE ENEMA 132 ML BTL PR PRN (12:03)
[2021-03-28] MEDS: GABAPENTIN 600 MG TAB PO SCH ×3 (12:07→20:16)
[2021-03-28] MEDS: LACTATED RINGER'S 1,000 ML IV SCH (13:03)
[2021-03-28] MEDS: KETOROLAC 30 MG/ML VIAL IV SCH ×2 (13:05→18:15)
--- NOTE | 2021-03-28 15:32 | Anesthesiology Progress Note ---
Date of Service March 28, 2021 Anesthesia Post Procedure Vital Signs Vital Signs: Temp Pulse Pulse Resp BP Pulse Ox 03/28/21 15:00 36.6 C 84 18 145/83 H 96 03/28/21 14:00 82 18 130/65 95 03/28/21 13:00 82 18 133/71 93 03/28/21 12:29 75 18 106/61 92 03/28/21 12:00 36.7 C 96 H 18 139/87 93 03/28/21 11:40 81 20 131/71 97 03/28/21 11:30 36.8 C 78 18 121/67 97 03/28/21 11:20 82 18 132/78 97 03/28/21 11:10 84 20 120/72 97 03/28/21 11:00 83 18 146/68 H 93 03/28/21 10:50 90 20 123/66 98 03/28/21 10:40 92 H 20 137/81 98 03/28/21 10:30 91 H 16 163/88 H 98 03/28/21 10:24 36.3 C L 90 14 146/95 H 99 03/28/21 07:23 36.7 C 91 H 18 149/81 H 97 03/27/21 23:03 37.0 C 95 H 18 153/73 H 90 03/27/21 16:07 36.6 C 77 16 167/81 H 97 Pain Intensity Lower Back: Pain Intensity: 3 Transfer of Care Handoff Completed per policy Notes Mental Status: alert / awake / arousable and participated in evaluation Patient Amnestic to Procedure: Yes Nausea / Vomiting: adequately controlled Pain: adequately controlled Airway Patency, RR, SpO2: stable & adequate BP & HR: stable & adequate Hydration State: stable & adequate Anesthetic Complications: no major complications apparent and Pt Satisfied with anesthetic care
--- NOTE | 2021-03-28 17:09 | Hospitalist Progress Note ---
Date of Service March 28, 2021 Assessment & Plan (1) Lumbar back pain: Plan: Lumbar Spinal stenosis with radiculopathy POD #0 s/p L4-L5 decompression fusion surgery by Dr. Chavez Monitor H&H, continue incentive spirometry, PT/OT when appropriate Discussed positioning with nursing post op since patient has been in chair, who will check with ortho Seasonal Allergies Flonase as needed DVT Px: per primary service Code Status Full Code Thank you for this consultation. We will follow the patient with you during their hospital stay. You can reach a member of the [facility] Hospitalist Team with any questions. Admission and Anticipated Discharge Date Admission Date: March 27, 2021 Supervising Physician Co-Signing Physician Notes Patient seen and examined by me, care coordinated with Vasquez Martinez PA-C, please refer to note above for further detail. Patient is a 40-year-old male, who underwent lumbar spinal surgery earlier today. Currently sitting up in chair, in no acute distress. Patient's at the bedside, updated. He is overall feeling well, has some back pain after surgery. Denies any fevers, chills, chest pain, shortness of breath, abdominal pain, nausea or vomiting. We will discuss further recommendations per orthopedic surgery, as this patient's been sitting in a chair for some time this afternoon. Monitor hemodynamic status, H&H. Noel Greer MD Subjective Patient seen and examined in 383-2. Sitting in bedside chair following surgery. Feeling well with the surgical site discomfort but denies carey pain. No numbness or paresthesias in bilateral lower extremities. No fever, chills, headache, lightheadedness, chest pain, shortness of breath, palpitations, nausea, vomiting, abdominal pain, dysuria, diarrhea or constipation. Review of Systems Review of Systems: At least ten systems reviewed and negative except as noted in the HPI. Physical Exam Physical Exam: Gen: WD/WN, NAD, sitting in bedside chair, A&Ox3 HEENT: Normocephalic, atraumatic, conjunctivae moist, sclerae anicteric, mucous membranes moist Lung: Clear to Auscultation bilaterally, no wheezes/rales/rhonchi Heart: Regular rate, regular rhythm, no murmurs, rubs, or gallops Abdomen: Soft, NT, ND +BS x 4 Extremities: Spinal dressing c/d/i. JVOANNA drain visualized. No edema Skin: Warm, no rash Results & Data Results & Data ([facility]) Vital Signs (Past 12 Hours) Vital Signs Temp Pulse Pulse Resp BP Pulse Ox 03/28/21 15:00 36.6 C 84 18 145/83 H 96 03/28/21 14:00 82 18 130/65 95 03/28/21 13:00 82 18 133/71 93 03/28/21 12:29 75 18 106/61 92 03/28/21 12:00 36.7 C 96 H 18 139/87 93 03/28/21 11:40 81 20 131/71 97 03/28/21 11:30 36.8 C 78 18 121/67 97 03/28/21 11:20 82 18 132/78 97 03/28/21 11:10 84 20 120/72 97 03/28/21 11:00 83 18 146/68 H 93 03/28/21 10:50 90 20 123/66 98 03/28/21 10:40 92 H 20 137/81 98 03/28/21 10:30 91 H 16 163/88 H 98 03/28/21 10:24 36.3 C L 90 14 146/95 H 99 03/28/21 07:23 36.7 C 91 H 18 149/81 H 97 Laboratory Results Short CBC 03/28/21 Range/Units 05:58 WBC 13.61 H (4.8-10.8) K/uL Hgb 13.8 L (14.0-18.0) g/dL Hct 41.1 L (42-52) % Plt Count 251 (130-400) K/uL [facility] 03/28/21 05:58 Sodium 140 Potassium 3.7 Chloride 109 H Carbon Dioxide 25 BUN 14 Creatinine 0.90 Glucose 175 H Calcium 8.9 Diagnostic Findings Short CBC 03/28/21 Range/Units 05:58 WBC 13.61 H (4.8-10.8) K/uL Hgb 13.8 L (14.0-18.0) g/dL Hct 41.1 L (42-52) % Plt Count 251 (130-400) K/uL [facility] 03/28/21 05:58 Sodium 140 Potassium 3.7 Chloride 109 H Carbon Dioxide 25 BUN 14 Creatinine 0.90 Glucose 175 H Calcium 8.9
[2021-03-28] MEDS: oxyCODONE HCL IR 5 MG TAB (IMMEDIATE RELEASE) PO PRN ×2 (17:29→22:29)
[2021-03-28] MEDS: ceFAZolin 2000MG 2,000 MG/15 ML SYR IV SCH (17:33)
[2021-03-28] MEDS: traMADol HCL 50 MG TABLET PO PRN (20:08)
[2021-03-28] MEDS: DOCUSATE SODIUM/SENNA 50/8.6MG TAB PO SCH (20:15)
[2021-03-29] MEDS: KETOROLAC 30 MG/ML VIAL IV SCH ×2 (01:18→06:09)
[2021-03-29] MEDS: ceFAZolin 2000MG 2,000 MG/15 ML SYR IV SCH (01:20)
[2021-03-29] MEDS: oxyCODONE HCL IR 5 MG TAB (IMMEDIATE RELEASE) PO PRN ×5 (02:23→21:30)
[2021-03-29] MEDS: POLYETHYLENE (MIRALAX) 17 GM PACK PO SCH ×3 (06:09→17:36)
[2021-03-29 06:11] LABS: Basophils # (auto) 0.02 K/uL (0-0.2); Basophils % (auto) 0.1 %; Eosinophils # (auto) 0.11 K/uL (0-0.5); Eosinophils % (auto) 0.8 %; Hematocrit (blood only) 38.8 % (42-52); Hemoglobin 12.5 g/dL (14.0-18.0); Immature Granulocytes # (auto) 0.03 K/uL (0.00-0.02); Immature Granulocytes % (auto) 0.2 %; Lymphocytes # (auto) 2.76 K/uL (1.2-3.4); Lymphocytes % (auto) 20.1 %; Mean Corpuscular Hemoglobin 30.3 pg (25-34); Mean Corpuscular Hgb Conc 32.2 g/dL (32-36); Mean Corpuscular Volume 93.9 fL (80-100); Mean Platelet Volume 10.9 fL (7.4-10.4); Monocytes # (auto) 1.06 K/uL (0.11-0.59); Monocytes % (auto) 7.7 %; Neutrophils # (auto) 9.78 K/uL (1.4-6.5); Neutrophils % (auto) 71.1 %; Platelet Count 224 K/uL (130-400); RDW Coefficient of Variation 12.9 % (11.5-14.5); RDW Standard Deviation 44.4 fL (36.4-46.3); Red Blood Count 4.13 M/uL (4.7-6.1); White Blood Count 13.76 K/uL (4.8-10.8)
[2021-03-29 06:42] LABS: BUN Creatinine Ratio 18.8 (10-20); Calcium 8.6 mg/dl (8.5-10.1); Creatinine Clr Calc Pharmacy 161.1 ml/min; Est GFR (African American) 123.4 ml/min; Est GFR (Non-African American) 106.5 ml/min; Potassium 3.8 mmol/L (3.5-5.1)
[2021-03-29] MEDS: GABAPENTIN 600 MG TAB PO SCH ×3 (09:11→21:31)
[2021-03-29] MEDS: dexAMETHasone 6 MG in SYRINGE 0 ML IV SCH (09:11)
[2021-03-29] MEDS ORDERED: bisacodyL 10 MG SUPP PR PRN (10:14)
--- NOTE | 2021-03-29 13:41 | Orthopedic Progress Note ---
Date of Service March 29, 2021 Assessment & Plan (1) Herniation of intervertebral disc of lumbar region: Plan: At this time we will continue physical therapy monitor his JOVANNA output anticipate discharge home this weekend. Admission and Anticipated Discharge Date Admission Date: March 27, 2021 Subjective Back pain controlled leg pain markedly improved Physical Exam Physical Exam: Patient is in the chair at the bedside. He is very comfortable. He exhibits excellent strength testing. Results & Data ([facility]) Vital Signs (Past 12 Hours) Vital Signs Temp Pulse Resp BP Pulse Ox 03/29/21 07:00 36.6 C 61 18 130/70 94 03/29/21 03:43 36.6 C 69 18 124/73 95
[2021-03-29] MEDS: traMADol HCL 50 MG TABLET PO PRN ×2 (14:20→19:58)
--- NOTE | 2021-03-29 16:36 | Hospitalist Progress Note ---
Date of Service March 29, 2021 Assessment & Plan (1) Lumbar back pain: Plan: Lumbar Spinal stenosis with radiculopathy POD #1 s/p L4-L5 decompression fusion surgery by Dr. Chavez Monitor H&H (hgb 12.5 today, 13.8 yesterday), continue incentive spirometry, PT/OT when appropriate Continue bowel regimen Episode of ? rectal bleeding Noted small amount of BRB in toilet bowl earlier after passing gas Unsure if drain leaking or possible GI bleed ? H/o hemorrhoids Discussed with RN, hat placed on toilet in case of repeat occurrence Monitor H&H, consider GI consult if bleeding continues. Avoiding NSAIDs for now Seasonal Allergies Flonase as needed DVT Px: per primary service Code Status Full Code Thank you for this consultation. We will follow the patient with you during their hospital stay. You can reach a member of the [facility] Hospitalist Team with any questions. Admission and Anticipated Discharge Date Admission Date: March 27, 2021 Supervising Physician Co-Signing Physician Notes Patient seen and examined by me, care coordinated with Vasquez Martinez PA-C, please refer to note above for further detail. Patient is a 40-year-old male, who underwent lumbar spinal surgery yesterday. Currently sitting up in chair, in no acute distress. He is overall feeling well, denies any fevers, chills, chest pain, shortness of breath, abdominal pain, nausea or vomiting. Reports noting some blood after having BM/ passing gas however pt is not sure of source. Discussed w/ RN, hat placed in toilet, monitor for recurrence/ identify the source. Monitor hemodynamic status, H&H. Noel Greer MD Subjective Seen and examined in 383-2. Feeling well today. Minimal surgical site discomfort. Able to ambulate with PT. Did notice small amount of bright red blood in toilet earlier when passing gas. Denies any pain. Does have history of hemorrhoids and admits he was straining earlier when this occurred. Does not think JOVANNA drain was leaking but cannot be sure. Denies any fever, chills, headache, chest pain, shortness of breath, nausea, vomiting, abdominal pain, dysuria or diarrhea. Review of Systems Review of Systems: At least ten systems reviewed and negative except as noted in the HPI. Physical Exam Physical Exam: Gen: WD/WN, NAD, sitting in bedside chair, A&Ox3 HEENT: Normocephalic, atraumatic, conjunctivae moist, sclerae anicteric, mucous membranes moist Lung: Clear to Auscultation bilaterally, no wheezes/rales/rhonchi Heart: Regular rate, regular rhythm, no murmurs, rubs, or gallops Abdomen: Soft, NT, ND +BS x 4 Extremities: Spinal dressing c/d/i. JOVANNA drain visualized. No edema Skin: Warm, no rash Results & Data Results & Data ([facility]) Vital Signs (Past 12 Hours) Vital Signs Temp Pulse Resp BP Pulse Ox 03/29/21 15:00 36.8 C 73 16 141/61 H 96 03/29/21 07:00 36.6 C 61 18 130/70 94 Laboratory Results Short CBC 03/29/21 Range/Units 05:44 WBC 13.76 H (4.8-10.8) K/uL Hgb 12.5 L (14.0-18.0) g/dL Hct 38.8 L (42-52) % Plt Count 224 (130-400) K/uL BMP 03/29/21 05:44 Sodium 140 Potassium 3.8 Chloride 108 H Carbon Dioxide 29 BUN 17 Creatinine 0.90 Glucose 105 H Calcium 8.6 Diagnostic Findings Lumbar Spine X-Ray 03/28/21 00:00 [place] lumbar spine 2-3V HISTORY: 40 years-old Male L4-L5 DECOMP/FUSION COMPARISON: Lumbar spine MRI 03/23/2021 TECHNIQUE: 2 spot fluoroscopic images of the lumbar spine were obtained utilizing 19.6 seconds fluoroscopy time FINDINGS: Laminectomy with discectomy, posterior interbody gabe and screw fusion at L4-L5. The hardware appears intact. No unexpected opaque foreign body identified on these images. IMPRESSION: Fluoroscopic assistance as above. ACT 112: Negative or not required by law. The above report was generated using voice recognition software. It may contain grammatical, syntax or spelling errors. Electronically signed by: Graeme Corcoran M.D. 03/28/2021 11:03 AM
[2021-03-29] MEDS: DOCUSATE SODIUM/SENNA 50/8.6MG TAB PO SCH (21:30)
[2021-03-30] MEDS: POLYETHYLENE (MIRALAX) 17 GM PACK PO SCH ×2 (00:44→05:58)
[2021-03-30] MEDS: oxyCODONE HCL IR 5 MG TAB (IMMEDIATE RELEASE) PO PRN ×2 (05:58→10:41)
[2021-03-30 06:33] LABS: Hematocrit (blood only) 38.9 % (42-52); Hemoglobin 12.8 g/dL (14.0-18.0); Mean Corpuscular Hemoglobin 30.3 pg (25-34); Mean Corpuscular Hgb Conc 32.9 g/dL (32-36); Mean Corpuscular Volume 92.2 fL (80-100); Mean Platelet Volume 10.7 fL (7.4-10.4); Platelet Count 241 K/uL (130-400); RDW Coefficient of Variation 12.8 % (11.5-14.5); RDW Standard Deviation 43.5 fL (36.4-46.3); Red Blood Count 4.22 M/uL (4.7-6.1); White Blood Count 12.11 K/uL (4.8-10.8)
[2021-03-30 07:04] LABS: BUN Creatinine Ratio 18.4 (10-20); Calcium 8.9 mg/dl (8.5-10.1); Creatinine Clr Calc Pharmacy 164.7 ml/min; Est GFR (African American) 124.5 ml/min; Est GFR (Non-African American) 107.5 ml/min
[2021-03-30] MEDS: traMADol HCL 50 MG TABLET PO PRN ×2 (07:21→13:26)
[2021-03-30] MEDS: GABAPENTIN 600 MG TAB PO SCH ×2 (07:23→13:25)
--- NOTE | 2021-03-30 08:39 | Discharge Summary ---
Date of Service March 30, 2021 Admission HPI Per Admitting Provider This is a 40-year-old male well-known to us that is been managed for back and leg symptoms for several months. He notes a marked decline in status over the past several weeks. With pain severe down the left buttock posterior lateral thigh into the lower leg. This is markedly exacerbated with standing and walking. Right lower extremities asymptomatic. He is unable to provide any position that provides relief. Oral medications provided no help. Is undergone extensive course of physical therapy and injections without any relief. Principal Diagnosis Lumbar disc condition with radiculopathy Discharge Data Allergies Allergy/AdvReac Type Severity Reaction Status Date / Time No Known Allergies Allergy Verified 03/19/21 09:31 Consultations 03/27/21 10:00 ED Decision to Admit Stat 03/27/21 11:34 Consult Internal Medicine Routine Procedures Performed Operation Date: 03/28/21 07:00 Actual Procedures p L4-L5 Decompression and Fusion, Placement of Intervertebral Cage and With Spinal Cord Monitoring(Bilateral) - Scooter Chavez DO Ordered Studies 03/28/21 [place] lumbar spine 2-3V Routine Hospital Course (1) Herniation of intervertebral disc of lumbar region: Patient was admitted with severe back and leg pain with weakness. He underwent surgery the following day tolerates well stable orthopedic floor. Postop day one is up and ambulating marked improvement of his symptoms. Progressed to postop day #2. Pain well controlled. JOVANNA drain decreasing probably. Excellent strength testing. Socially discharged home. Discharge orders instructions from the chart for further review. Total Time Total Time Spent Total Time Spent (In Minutes): 20 minutes Discharge Plan Discharge Items Patient Disposition: Home - Self-Care Reason For Visit: BACK AND LEG PAIN Discharge Diagnosis: Lumbar disc condition with radiculopathy Activity: As commented below Non-emergency contact: Primary Care Provider Call non-emergency contact if: you have any medication questions Follow-up/Referrals: Peterson Gaxiola DO [Primary Care Provider] - Diet: Regular Addtl Attending Provider Instructions: ACTIVITY RECOMMENDATIONS: SELF CARE INSTRUCTIONS AFTER THORACIC/LUMBAR FUSIONS 1. You may walk to your tolerance. It is good exercise for your legs and back. Expect some back and intermittent leg aches and pains. 2. You may perform "counter-top" level activities (make a sandwich, j luis with a project, etc.). 3. No bending or lifting of more than 10 pounds or back twisting of any nature (roll like a log when turning in bed). 4. You may ride in a car for 20-30 minutes at a time. No driving until after your first visit with your doctor. 5. Frequent changes of position and restricting sitting to 30 minutes at a time will help limit the amount of back spasms and stiffness you may experience. 6. You may discontinue the use of ambulatory aids (cane, crutches, etc.) once your strength and confidence allow. 7. You may cutter brake lining the shower and let water strike your incision when you arrive home at least once daily. Do not take a tub bath, sit in a hot tub or go into a swimming pool until after your first recheck in the office. SPECIAL CARE INSTRUCTIONS: VERY IMPORTANT TO READ AND REVIEW A. Your surgical incision has been closed with a cosmetic suture under the skin that will dissolve in about 6 weeks. In 14 days, you can use a pair of clean scissors and cut the suture that is left outside of the skin at the ends of your incision. 1. The small skin tapes can be removed 7 days after surgery if they have not fallen off by that point. 2. You may keep the wound open to air as much as possible to promote healing after post-op day number 5 unless told otherwise by your doctor. 3. If you think the wound looks like it is becoming infected (redness or worsening drainage) and/or you are experiencing fever, chill or worsening back pain and muscle spasms, contact the office so that we may evaluate you as soon as possible. B. Complications are uncommon, but please contact us if you have any signs or symptoms of: 1. wound infection (fever higher than 102.5 degrees F, redness, separation of wound, drainage, or increasing pain from the incision) 2. blood clots in legs (pain, swelling, redness and warmth in legs) 3. urinary tract infection (fever higher than 102.5 degrees F, burning upon urination or increased frequency of urination) 4. nerve problems (inability to walk on your toes or heels, numbness, loss of bowel or bladder control) 5. any other symptoms that concern you C. Please call the office at if you have any concerns or questions about your operation or recovery. D. No smoking! Smoking drastically decreases the chance of a solid fusion. E. Do not take any anti-inflammatory medications (Indocin, Advil, Motrin, Aspirin, Naprosyn, etc.) as these may inhibit the chance of a solid fusion. Tylenol is okay to take for pain. MANAGING PAIN AFTER SPINAL SURGERY 1. Narcotic medication is intended for short-term use and will be provided for surgical pain. Surgical pain usually lasts for a period of 4-6 weeks. Narcotic medication includes Percocet, Vicodin, Darvocet, Tylenol #3 or Lortab. 2. Longer-term pain is more appropriately treated with non-narcotic medication such as Tylenol ES. 3. Muscle spasm is not appropriately treated with narcotics. Muscle relaxers such as Soma, Flexeril or Skelaxin can be used along with Tylenol ES. 4. Remember that we all live with some "aches and pains". This is not unusual or uncommon after an injury or as we get older. a. Back pain is expected and may include muscle spasms for 4 to 6 weeks after surgery. The pain should gradually improve. If the pain worsens for no apparent reason, please contact the office. b. Intermittent leg pain may also be experienced and should not be concerned about unless it worsens for no apparent reason. If so, please contact the office. 5. We will provide appropriate medication within the normal guidelines of their prescribed use. We will also be very cautious and aware of potential abuse and extended duration of patients' medication needs. a. Pain medications are for your comfort and to assist with sleep and rest so that the tissue can heal. They are not provided in order to return to normal activity and should not be used through the day. To do so or worsening pain at night can result from ongoing tissue damage and development of tolerance to the prescribed medicine. 6. Please allow 2-3 days to process refills. Prescriptions will not be mailed but must be picked up at the office. FOLLOW UP VISIT: Keep your scheduled follow-up appointment. Any questions, please call the office at . Pending Studies at Discharge: No Stand-Alone Forms: [employer], Smoking Cessation Medications and DC Order Prescriptions: New oxycodone 5 mg tablet 5 mg PO Q6H PRN (Reason: pain, severe) Qty: 30 RF: 0 tramadol 50 mg tablet 50 mg PO Q6H PRN (Reason: pain, moderate) Qty: 30 RF: 0 Continued cyclobenzaprine 10 mg Tablet 10 mg PO TID PRN (Reason: Pain) RF: 0 gabapentin 600 mg Tablet 600 mg PO TID RF: 0 tramadol 50 mg Tablet 50 mg PO TID PRN (Reason: Pain) RF: 0 celecoxib 200 mg capsule 200 mg PO DAILY RF: 0 Discontinued naproxen sodium [Aleve] 220 mg Capsule 220 mg PO BID PRN (Reason: Pain) RF: 0 Discharge Orders: Discharge Order (Routine); Ordered 03/30/21 Ordered By: Scooter Chavez Admission Data Admit Date/Time: 03/27/21 10:18 Attending Provider: Scooter Chavez Admit Provider: Scooter Chavez Primary Care Provider: Peterson Gaxiola Other Providers: Wally Greer ; Scooter Chavez ; Lyubov Quintero
[2021-03-30] MEDS: dexAMETHasone 6 MG in SYRINGE 0 ML IV SCH (09:49)
--- NOTE | 2021-03-30 10:51 | Hospitalist Progress Note ---
Date of Service March 30, 2021 Assessment & Plan (1) Lumbar back pain: Plan: Lumbar Spinal stenosis with radiculopathy POD #2 s/p L4-L5 decompression fusion surgery by Dr. Chavez Monitor H&H Hgb stable from yesterday continue incentive spirometry, PT/OT when appropriate Continue bowel regimen Episode of ? rectal bleeding Noted small amount of BRB in toilet bowl yesterday Unsure if drain leaking or possible GI bleed ? H/o hemorrhoids Discussed with RN, hat placed on toilet in case of repeat occurrence Today patient reported having a bowel movement, and no blood noted, also H&H stable from yesterday Seasonal Allergies Flonase as needed DVT Px: per primary service Code Status Full Code Thank you for this consultation. We will follow the patient with you during their hospital stay. You can reach a member of the [facility] Hospitalist Team with any questions. Admission and Anticipated Discharge Date Admission Date: March 27, 2021 Subjective Patient seen in follow-up of lumbar surgery Yesterday patient reported questionable bleeding while using toilet. Today he says that he had a bowel movement, and there was no blood. Hemoglobin stable from yesterday as well. He is ambulating without difficulty, feeling well. No chest pain, shortness of breath, abdominal pain, nausea vomiting. Also denies any dizziness or lightheadedness. Plan to discharge likely today. Review of Systems Review of Systems: All systems reviewed & are unremarkable except as noted in Subjective Physical Exam Physical Exam: Gen: WD/WN, NAD, s itting in bedside chair, A&Ox3 HEENT : Normocephalic, a traumatic, conjunc tivae moist, scler ae anicteric, muco us membranes moist Lung: Clear to Au scultation bilater ally, no wheezes/r ales/rhonchi Heart : Regular rate, re gular rhythm, no m urmurs, rubs, or g allops Abdomen: So ft, NT, ND +BS x 4 Extremities: Spin al dressing c/d/i. JOVANNA drain visualiz ed. No edema Skin: Warm, no rash Results & Data Results & Data ([facility]) Vital Signs (Past 12 Hours) Vital Signs Temp Pulse Resp BP Pulse Ox 03/30/21 07:04 36.9 C 65 16 158/77 H 95 Laboratory Results 03/30/21 03/30/21 Range/Units 05:53 05:53 WBC 12.11 H (4.8-10.8) K/uL RBC 4.22 L (4.7-6.1) M/uL Hgb 12.8 L (14.0-18.0) g/dL Hct 38.9 L (42-52) % MCV 92.2 (80-100) fL MCH 30.3 (25-34) pg MCHC 32.9 (32-36) g/dL RDW Std Deviation 43.5 (36.4-46.3) fL RDW Coeff of Ying 12.8 (11.5-14.5) % Plt Count 241 (130-400) K/uL MPV 10.7 H (7.4-10.4) fL Sodium 141 (136-145) mmol/L Potassium 4.0 (3.5-5.1) mmol/L Chloride 107 (98-107) mmol/L Carbon Dioxide 29 (21-32) mmol/L Anion Gap 5.0 (3-11) BUN 16 (7-18) mg/dl Creatinine 0.88 (0.6-1.4) mg/dl Est Cr Clr Drug Dosing 164.7 ml/min Est GFR ( Amer) 124.5 ml/min Est GFR (Non-Af Amer) 107.5 ml/min BUN/Creatinine Ratio 18.4 (10-20) Glucose 97 (70-99) mg/dl Calcium 8.9 (8.5-10.1) mg/dl Medications Administered Current Inpatient Medications Acetaminophen (Acetaminophen 500 Mg Tab) 1,000 mg PO Q8H PRN PRN Reason: MILD Pain Scale 1,2,3 & Pre PT Stop: 04/26/21 11:33 Acetaminophen (Acetaminophen 500 Mg Tab) 1,000 mg PO Q8H PRN PRN Reason: MILD Pain Scale 1,2,3 & Pre PT Stop: 04/27/21 12:02 Al Hydrox/Mg Hydrox/Simethicone (Aluminum/Magnesium Susp 30 Ml Udc) 30 ml PO Q6H PRN PRN Reason: Dyspepsia Stop: 04/26/21 11:33 Al Hydrox/Mg Hydrox/Simethicone (Aluminum/Magnesium Susp 30 Ml Udc) 30 ml PO Q6H PRN PRN Reason: Dyspepsia Stop: 04/27/21 12:02 Bisacodyl (Bisacodyl 10 Mg Supp) 10 mg PA DAILY PRN PRN Reason: Constipation Stop: 04/28/21 10:13 Bisacodyl (Bisacodyl 10 Mg Supp) 10 mg PA DAILY PRN PRN Reason: Constipation Stop: 04/27/21 12:02 Diphenhydramine HCl (Diphenhydramine Capsule 25 Mg Cap) 25 mg PO Q6H PRN PRN Reason: Allergic Rhinitis/Insomnia Stop: 04/26/21 11:33 Diphenhydramine HCl (Diphenhydramine Capsule 25 Mg Cap) 25 mg PO Q6H PRN PRN Reason: Allergic Rhinitis/Insomnia Stop: 04/27/21 12:02 Famotidine (Famotidine 20 Mg Tab) 20 mg PO Q12H PRN PRN Reason: Dyspepsia Stop: 04/27/21 12:02 Gabapentin (Gabapentin 600 Mg Tab) 600 mg PO TID ZENAIDA Stop: 04/26/21 13:59 Last Admin: 03/30/21 07:23 Dose: 600 mg Documented by: Hydromorphone HCl (Hydromorphone Inj 0.5 Mg/0.5 Ml Syr) 0.5 mg IV Q3H PRN PRN Reason: MOD pain (scale 4-6) & Pre PT Stop: 04/10/21 11:33 Hydromorphone HCl (Hydromorphone Inj 1 Mg/Ml Syringe) 1 mg IV Q3H PRN PRN Reason: severe pain (scale 7-10) Stop: 04/10/21 11:33 Hydromorphone HCl (Hydromorphone Inj 0.5 Mg/0.5 Ml Syr) 0.5 mg IV Q3H PRN PRN Reason: MODERATE Pain (Scale 4,5,6) & Pre PT Stop: 04/11/21 12:02 Hydromorphone HCl (Hydromorphone Inj 1 Mg/Ml Syringe) 1 mg IV Q3H PRN PRN Reason: SEVERE Pain (Scale 7,8,9,10) Stop: 04/11/21 12:02 Hydroxyzine HCl (Hydroxyzine Hcl 25 Mg Tab) 25 mg PO Q8H PRN PRN Reason: Anxiety Stop: 04/26/21 11:33 Hydroxyzine HCl (Hydroxyzine Hcl 25 Mg Tab) 25 mg PO Q8H PRN PRN Reason: Anxiety Stop: 04/27/21 12:02 Acetaminophen (Ofirmev) 1,000 mg in 100 mls @ 400 mls/hr IV Q8H PRN PRN Reason: Pain Rating 1-3 & Pre PT Stop: 03/30/21 11:33 Lorazepam (Ativan) 0.5 mg in 1 mls @ 1 mls/min IV Q8H PRN PRN Reason: Sedation/Anxiety Stop: 04/26/21 11:33 Promethazine HCl 12.5 mg/ (Sodium Chloride) 50.5 mls @ 202 mls/hr IV Q6H PRN PRN Reason: Nausea &/or Vomiting Stop: 04/26/21 11:33 Acetaminophen (Ofirmev) 1,000 mg in 100 mls @ 400 mls/hr IV Q8H PRN PRN Reason: Pain Rating 1-3 & Pre PT Stop: 03/31/21 12:02 Lorazepam (Ativan) 0.5 mg in 1 mls @ 1 mls/min IV Q8H PRN PRN Reason: Sedation/Anxiety Stop: 04/27/21 12:02 Dexamethasone 6 mg/ Syringe 1.5 mls @ 1 mls/min IV DAILY ZENAIDA Stop: 03/31/21 09:02 Last Admin: 03/30/21 09:49 Dose: 1 mls/min Documented by: Promethazine HCl 12.5 mg/ (Sodium Chloride) 50.5 mls @ 202 mls/hr IV Q6H PRN PRN Reason: Nausea &/or Vomiting Stop: 04/27/21 12:02 Influenza Virus Vaccine Quadrival (Do Not Administer Flu Vaccine) 1 ea N/A PRN PRN PRN Reason: Notification Stop: 04/27/21 12:02 Lorazepam (Lorazepam 0.5 Mg Tab) 0.5 mg PO Q8H PRN PRN Reason: sedation/anxiety Stop: 04/26/21 11:33 Lorazepam (Lorazepam 0.5 Mg Tab) 0.5 mg PO Q8H PRN PRN Reason: Sedation/Anxiety Stop: 04/27/21 12:02 Magnesium Hydroxide (Magnesium Hydroxide Susp 30 Ml Udc) 30 ml PO Q24H PRN PRN Reason: Constipation Stop: 04/26/21 11:33 Magnesium Hydroxide (Magnesium Hydroxide Susp 30 Ml Udc) 30 ml PO Q24H PRN PRN Reason: Constipation Stop: 04/27/21 12:02 Metoclopramide HCl (Metoclopramide Hcl Inj 5 Mg/Ml 2 Ml Vial) 10 mg IV Q6H PRN PRN Reason: Nausea &/or Vomiting Stop: 04/26/21 11:33 Metoclopramide HCl (Metoclopramide Hcl Inj 5 Mg/Ml 2 Ml Vial) 10 mg IV Q6H PRN PRN Reason: Nausea &/or Vomiting Stop: 04/27/21 12:02 Naloxone HCl (Naloxone Hcl 0.4 Mg/1 Ml Vial/Carp) 0.1 mg IV Q5M PRN PRN Reason: Oversedation/respiratory dep Stop: 04/26/21 11:33 Naloxone HCl (Naloxone Hcl 0.4 Mg/1 Ml Vial/Carp) 0.1 mg IV Q5M PRN PRN Reason: Oversedation/Resp depression Stop: 04/27/21 12:02 Ondansetron HCl (Ondansetron Inj 2 Mg/Ml 2 Ml Vial) 4 mg IV Q6H PRN PRN Reason: Nausea &/or Vomiting Stop: 04/26/21 11:33 Ondansetron HCl (Ondansetron 4 Mg Od Tab) 4 mg PO Q6H PRN PRN Reason: Nausea Stop: 04/26/21 11:33 Ondansetron HCl (Ondansetron Inj 2 Mg/Ml 2 Ml Vial) 4 mg IV Q6H PRN PRN Reason: Nausea &/or Vomiting Stop: 04/27/21 12:02 Ondansetron HCl (Ondansetron 4 Mg Od Tab) 4 mg PO Q6H PRN PRN Reason: Nausea Stop: 04/27/21 12:02 Oxycodone HCl (Oxycodone Hcl Ir 5 Mg Tab (Immediate Release)) 5 - 10 mg PO Q4H PRN PRN Reason: mod to severe pain Stop: 04/10/21 11:33 Last Admin: 03/30/21 10:41 Dose: 10 mg Documented by: Oxycodone HCl (Oxycodone Hcl Ir 5 Mg Tab (Immediate Release)) 5 - 10 mg PO Q4H PRN PRN Reason: Pain & Pre PT Stop: 04/11/21 12:02 Pneumococcal Polyvalent Vaccine (Do Not Administer Pneumococcal Vaccine) 1 ea N/A PRN PRN PRN Reason: Notification Stop: 04/27/21 12:02 Polyethylene Glycol (Polyethylene (Miralax) 17 Gm Pack) 17 gm PO Q6 [facility] Stop: 04/28/21 05:59 Last Admin: 03/30/21 05:58 Dose: 17 gm Documented by: Senna/Docusate Sodium (Docusate Sodium/Senna 50/8.6mg Tab) 2 tab PO HS [facility] Stop: 04/27/21 20:59 Last Admin: 03/29/21 21:30 Dose: 2 tab Documented by: Sodium Biphosphate/Sodium Phosphate (Sod Phosphate/Sod Biphosphate Enema 132 Ml Btl) 132 ml PA ONE PRN PRN Reason: Constipation Stop: 04/27/21 12:02 Tramadol HCl (Tramadol Hcl 50 Mg Tablet) 50 - 100 mg PO Q4H PRN PRN Reason: Moderate-Severe pain & Pre PT Stop: 04/26/21 11:33 Last Admin: 03/30/21 07:21 Dose: 50 mg Documented by: Tramadol HCl (Tramadol Hcl 50 Mg Tablet) 50 - 100 mg PO Q4H PRN PRN Reason: Moderate-Severe pain & Pre PT Stop: 04/27/21 12:02
--- NOTE | 2021-04-12 13:39 | Coding Query ---
BMI To promote full compliance with coding requirements relating to patient care, physician participation is requested in all cases of cable maintainer uncertainty. Please assist us with the question(s) below: Please place an X within the parenthesis (x). If other, please document: BMI 41 was documented in this record for this patient. If the BMI is significant, please check the box that provides a more specific associated diagnosis: ( ) Overweight/Obese ( ) Obesity (x ) Morbid obesity ( ) Obesity Hypoventilation Syndrome (OHS) ( ) Heathy weight, not significant ( ) Underweight/Thin ( ) Other, please specify Thank you Merlyn BREWER
== END 2021-03-30 14:03 | disposition home or self-care (01) | DRG 454 ==
LOC: ED 07:09 → EDINP 10:18 → 3N 13:17